=== PATIENT | female | born 1990 | race Hispanic/Latino ===

== ENCOUNTER 2016-09-03 12:33 | Emergency (ER) | payer SELFPAY ==
--- NOTE | 2016-09-03 13:48 | Emergency Department Report ---
Chief Complaint: Urogenital-Female Stated Complaint: ABD PAIN/UTI Time Seen by Provider: 09/03/16 13:46 - HPI History of Present Illness: pt c/o uti symptoms - ROS Review of Systems: + retention + frequency - vaginal discharge - Exam Physical Exam: pt looks well, non toxic no cva tenderness ruperto MSE screening note: Focused history and physical exam performed. Due to findings the following was ordered: labs ED Disposition for MSE Condition: Stable
[2016-09-03 14:43] LABS: Bacteria,Urine 1+ /HPF (Negative); Bilirubin,Urine NEG (Negative); Blood,Urine NEG (Negative); Ketones,Urine NEG (Negative); Leukocyte Esterase,Urine NEG (Negative); Mucus,Urine 1+ /HPF; Nitrite,Urine NEG (Negative); Protein,Urine <15 mg/dL mg/dL (Negative); Urobilinogen,Urine < 2.0 mg/dL (<2.0); WBC,Urine < 1.0 /HPF (0.0-6.0)
[2016-09-03 17:20] LABS: Basophils % (Auto) 0.6 % (0.0-1.8); Eosinophils % (Auto) 2.1 % (0.0-4.3); Hematocrit 41.3 % (30.3-42.9); Hemoglobin 13.2 gm/dl (10.1-14.3); Mean Corpuscular HGB Conc 32 % (30-34); Mean Corpuscular Hemoglobin 29 pg (28-32); Mean Corpuscular Volume 90 fl (79-97); Platelet Count 262 K/mm3 (140-440); White Blood Count 8.9 K/mm3 (4.5-11.0)
[2016-09-03 17:32] LABS: Amylase 27 units/L (27-131); Anion Gap 18 mmol/L; Blood Urea Nitrogen 10 mg/dL (7-17); Calcium 9.7 mg/dL (8.4-10.2); Carbon Dioxide 24 mmol/L (22-30); Chloride 101.6 mmol/L (98-107); Glucose 75 mg/dL (65-100); Lipase 19 units/L (13-60); Sodium 140 mmol/L (137-145)
--- NOTE | 2016-09-03 18:46 | Emergency Department Report ---
ED Female HPI - General Chief complaint: Urogenital-Female Stated complaint: ABD PAIN/UTI Time Seen by Provider: 09/03/16 13:46 Source: patient Mode of arrival: Ambulatory Limitations: No Limitations - History of Present Illness Initial comments: 25-year-old female past medical history none presents with complaint of 2-3 days of whitish vaginal discharge and mild vaginal irritation. States she has very mild burning with urination but denies any increased urinary frequency denies any nausea or vomiting no fevers or chills no abdominal pain reported by the patient. MD Complaint: dysuria Onset/Timin -: days(s) Location: labia Radiation: non-radiating Severity: mild Quality: burning Consistency: intermittent Are you Now?: No Last Menstrual Period: 08/09/16 EDC: 05/16/17 Associated Symptoms: denies other symptoms - Related Data Sexually active: Yes Previous Rx's Medication Instructions Recorded Last Taken Type metroNIDAZOLE [Flagyl TAB] 500 mg PO Q12HR #14 tab 09/03/16 Unknown Rx Allergies Allergy/AdvReac Type Severity Reaction Status Date / Time Penicillins Allergy Rash Verified 09/03/16 13:46 ED Review of Systems ROS: Stated complaint: ABD PAIN/UTI Other details as noted in HPI Constitutional: denies: chills, fever Eyes: denies: eye pain, eye discharge, vision change ENT: denies: ear pain, throat pain Respiratory: denies: cough, shortness of breath, wheezing Cardiovascular: denies: chest pain, palpitations Endocrine: no symptoms reported Gastrointestinal: denies: abdominal pain, nausea, diarrhea Genitourinary: discharge (whitish vaginal discharge as per the patient). denies : urgency, dysuria Musculoskeletal: denies: back pain, joint swelling, arthralgia Skin: denies: rash, lesions Neurological: denies: headache, weakness, paresthesias Psychiatric: denies: anxiety, depression Hematological/Lymphatic: denies: easy bleeding, easy bruising ED Past Medical Hx - Past Medical History Previous Medical History?: No - Surgical History Past Surgical History?: Yes Additional Surgical History: Tonsilectomy - Social History Smoking Status: Current Every Day Smoker Substance Use Type: Alcohol, Non Opiate Pain - Medications Home Medications: Home Medications Medication Instructions Recorded Confirmed Last Taken Type metroNIDAZOLE [Flagyl TAB] 500 mg PO Q12HR #14 tab 09/03/16 Unknown Rx ED Physical Exam - General Limitations: No Limitations General appearance: alert, in no apparent distress - Head Head exam: Present: atraumatic, normocephalic - Eye Eye exam: Present: normal appearance, PERRL, EOMI - ENT ENT exam: Present: mucous membranes moist - Neck Neck exam: Present: normal inspection - Respiratory Respiratory exam: Present: normal lung sounds bilaterally. Absent: respiratory distress - Cardiovascular Cardiovascular Exam: Present: regular rate, normal rhythm. Absent: systolic murmur, diastolic murmur, rubs, gallop - GI/Abdominal GI/Abdominal exam: Present: soft, normal bowel sounds - External exam: Present: normal external exam Speculum exam: Present: vaginal discharge (whitish vaginal discharge) Bi-manual exam: Present: normal bi-manual exam (no cervical motion tenderness and no adnexal tenderness on pelvic exam) - Extremities Exam Extremities exam: Present: normal inspection - Back Exam Back exam: Present: normal inspection - Neurological Exam Neurological exam: Present: alert, oriented X3 - Psychiatric Psychiatric exam: Present: normal affect, normal mood - Skin Skin exam: Present: warm, dry, intact, normal color. Absent: rash ED Course Vital Signs 09/03/16 13:46 Temperature 98.2 F Pulse Rate 70 Respiratory 20 Rate Blood Pressure 118/74 O2 Sat by Pulse 99 Oximetry ED Medical Decision Making - Lab Data Result diagrams: 09/03/16 17:01 09/03/16 17:01 - Medical Decision Making A/P: Bacterial vaginosis 1-metronidazole 500 twice a day 7 days 2-GC culture sent, follow up with [facility] 3-patient has no clinical signs of PID is not and has minimal to no discharge on clinical exam 4-UA does not show nitrites, patient states the sensation she is experiencing is more vaginal irritation and dysuria Critical care attestation.: If time is entered above; I have spent that time in minutes in the direct care of this critically ill patient, excluding procedure time. ED Disposition Clinical Impression: Bacterial vaginosis Disposition: - TO HOME OR SELFCARE Is pt being admited?: No Does the pt Need Aspirin: No Condition: Stable Instructions: Bacterial Vaginosis (ED) Prescriptions: metroNIDAZOLE [Flagyl TAB] 500 mg PO Q12HR #14 tab Referrals: [facility] [Provider Group] - 3-5 Days Forms: Accompanied Note, STI Treatment and Prevention, Work/School Release Form (ED)
[2016-09-03 23:13] VITALS: BP 101/68
== END 2016-09-03 19:00 | disposition home or self-care (01) ==
LOC: ED 12:33
DX: N76.0 Acute vaginitis (principal); B96.89 Other specified bacterial agents as the cause of diseases classified elsewhere; F17.200 Nicotine dependence, unspecified, uncomplicated; Z88.0 Allergy status to penicillin
CPT/HCPCS: 36415; 80048; 81001; 81025; 82150; 83690; 84703; 85025; 87210; 87591; 99284